=== PATIENT | male | born 1960 | race Caucasian/White ===

== ENCOUNTER 2024-01-27 15:20 | Outpatient (CLI) | payer MEDICAID, SELFPAY ==
--- NOTE | 2024-01-27 15:28 | XR_ITS ---
FINAL REPORT CLINICAL HISTORY: Left knee pain COMPARISON: None FINDINGS: LEFT KNEE Three views demonstrate no acute fracture or dislocation. There are small osteophytes along the undersurface of the patella. There is advanced narrowing of the medial compartment joint space. Subchondral sclerosis is identified. No acute soft tissue abnormality is seen. IMPRESSION: Hypertrophic changes of osteoarthritis medial compartment and patellofemoral compartment. Reviewed, Interpreted and Dictated by Haider Ram MD Transcribed by Cristy Rubio Authenticated and [facility]
== END 2024-01-27 23:59 | disposition home or self-care (01) ==
PROVIDERS: Visit Provider Orthopaedic Surgery
DX: M25.562 Pain in left knee (principal)
CPT/HCPCS: 73562

== ENCOUNTER 2024-02-04 14:04 | Outpatient (CLI) | payer OTHER, SELFPAY ==
[2024-02-04 17:01] LABS: Basophils # 0.1 K/mm3 (0-0.2); Basophils % 1.5 % (0.1-2.0); Eosinophils # 0.1 K/mm3 (0.0-0.4); Eosinophils % 1.4 % (0.1-12.0); Hematocrit 58.7 % (42.0-52.0); Lymphocytes # 1.3 K/mm3 (0.7-4.5); Lymphocytes % 20.1 % (10-50); Mean Corpuscular HGB Conc 31.2 g/dL (31.8-35.4); Mean Corpuscular Hemoglobin 30.6 pg (27.0-31.2); Mean Corpuscular Volume 97.9 fl (80-94); Mean Platelet Volume 8.7 fl (7.4-10.4); Monocytes # 0.5 K/mm3 (0.1-1.0); Monocytes % 7.8 % (1.7-9.3); Neutrophils # 4.4 K/mm3 (1.8-7.8); Platelet Count 212 K/mm3 (142-424); Red Blood Count 5.99 M/mm3 (4.60-6.20); Red Cell Distribution Width 14.1 % (11.5-17.5); White Blood Count 6.4 K/mm3 (4.8-10.8)
[2024-02-04 17:21] LABS: Alanine Aminotransferase 15 U/L (12-78); Albumin/Globulin Ratio 1.4 (1.1-1.8); Alkaline Phosphatase 124 U/L (38-126); Anion Gap 5.9 mEq/L (5-15); Aspartate Amino Transferase 34 U/L (17-59); Bilirubin,Total 1.2 mg/dl (0.2-1.3); Blood Urea Nitrogen 17 mg/dl (9-20); Calcium 9.4 mg/dl (8.4-10.2); Carbon Dioxide 33 mmol/L (22.0-30.0); Chloride 105 mmol/L (98-107); Chol/HDL Ratio 5.3 (1-3.5); Cholesterol 168 mg/dl (140-200); Estimated Glomerular Filt Rate 114 ml/min (>60); GFR (African American) 137 ML/MIN (>60); Globulin 2.9 g/dL (1.3-3.2); Glucose 114 mg/dl (74-100); HDL Cholesterol 32 mg/dl (40-60); Magnesium 1.8 mg/dl (1.6-2.3); Potassium 4.9 mmoL/L (3.5-5.1); Sodium 139 mmol/L (136-145); Total Protein,Serum 6.9 g/dl (6.3-8.2); Triglycerides 80 mg/dl (30-150); VLDL Cholesterol 16 mg/dL (0-40)
[2024-02-04 17:30] LABS: NT Pro Brain Natriuretic Pep. 6290 pg/mL (0-125)
[2024-02-04 17:31] LABS: Hemoglobin A1C 7.5 % (4.0-6.0)
[2024-02-04 17:32] LABS: Direct LDL Cholesterol 119.56 mg/dL (100-129)
[2024-02-04 17:50] LABS: Hemoglobin 18.3 g/dL (14.1-18.0)
[2024-02-04 18:05] LABS: Thyroid Stimulating Hormone 2.82 uIU/mL (0.465-4.68)
== END 2024-02-04 23:59 | disposition home or self-care (01) ==
LOC: LAB.DROPOF 02-05 10:17
PROVIDERS: PCP Nurse Practitioner Family; Visit Provider Nurse Practitioner Family
DX: Z13.1 Encounter for screening for diabetes mellitus (principal); R06.09 Other forms of dyspnea; R60.9 Edema, unspecified; Z13.220 Encounter for screening for lipoid disorders
CPT/HCPCS: 80050; 80053; 80061; 83036; 83735; 83880; 84443; 85025; 87086

== ENCOUNTER 2024-02-07 10:38 | Outpatient (CLI) | payer OTHER, SELFPAY ==
--- NOTE | 2024-02-07 10:41 | XR_ITS ---
FINAL REPORT TECHNIQUE: Chest PA & Lateral CLINICAL HISTORY: CHF, edema COMPARISON: None FINDINGS: 2 views of the chest were performed. The heart is mildly enlarged. The mediastinum is within normal limits. There is right lower lobe consolidation and right lower lobe atelectasis. There is a small right pleural effusion. There is no pneumothorax. The bony thorax appears intact. IMPRESSION: Right lower lobe consolidation and atelectasis with small right pleural effusion. Reviewed, Interpreted and Dictated by Haider Ram MD Transcribed by Cristy Rubio Authenticated and [facility]
== END 2024-02-07 23:59 | disposition home or self-care (01) ==
LOC: RAD 10:39
PROVIDERS: PCP Nurse Practitioner Family; Visit Provider Nurse Practitioner Family
DX: I50.9 Heart failure, unspecified (principal)
CPT/HCPCS: 71046

== ENCOUNTER 2024-02-07 13:32 | Outpatient (CLI) | payer OTHER, SELFPAY ==
--- NOTE | 2024-02-07 13:30 | CA_ITS ---
FINAL REPORT TECHNIQUE: Multiple transverse and longitudinal images were performed of the right femoral-popliteal deep venous system with augmentation and compression maneuvers. CLINICAL HISTORY: leg pain and edema (right) x 3 weeks, denies trauma, recent diabetes diagnosis. FINDINGS: Right lower extremity duplex ultrasound demonstrates normal flow in the deep venous system. There is no abnormal echogenicity to suggest thrombus. There is normal compression and augmentation. IMPRESSION: No evidence of right lower extremity DVT. Reviewed, Interpreted and Dictated by Haider Ram MD Transcribed by Viky Britt Authenticated and [facility]
== END 2024-02-07 23:59 | disposition home or self-care (01) ==
LOC: RT 13:35
PROVIDERS: PCP Nurse Practitioner Family; Visit Provider Physician Assistant
DX: M79.604 Pain in right leg (principal); M79.605 Pain in left leg; R60.0 Localized edema; R06.09 Other forms of dyspnea; R94.31 Abnormal electrocardiogram [ECG] [EKG]
CPT/HCPCS: 93971

== ENCOUNTER 2024-02-10 13:17 | Outpatient (CLI) | payer OTHER, SELFPAY ==
--- NOTE | 2024-02-10 13:22 | CA_ITS ---
APPROVED REPORT EXAM: Comprehensive 2D, Doppler, and color-flow Echocardiogram Gas Treater: Cece Bello RVT Ht: 6 ft 1 in Wt: 257lbs BSA: 2.39 BP: 109/80 mmHg Indications: DYSPENA,CHF,ABN EKG,DM,EDEMA,CP,SMOKER 2D Dimensions LA Volume 88.70 mL LA Volume Index 36.96 mL/m2 (M/F) 16-34 M-Mode Dimensions RVDd 3.44 cm (0.9-2.6) LA Diam 4.71 cm (1.9-4.0) LVDd 5.65 cm (3.5-5.7) LVDs 4.33 cm (3.5-5.7) IVSd 1.03 cm (0.6-1.1) PWd 0.84 cm (0.6-1.1) EF (Teich) 46.20% FS 23.40% EDV (Teich) 156.80 mL TAPSE 1.75 (<1.7) ESV (Teich) 84.40 mL Aortic Valve DHRUV Index 1.43 cm2/m2 AoV Peak Antonio. 84.0 (50-130 cm/s) AO Peak GR. 2.80 mmHg AO Mean GR. 1.90 (<5 mmHg) AO VTI 15.2 (18-25 cm) DHRUV (VTI) 3.51 (2.5-4.5 cm2) Pulmonary Valve PV Peak Velocity 74.0 (50-150 cm/s) Tricuspid Valve TR P. Velocity 310.00 cm/s RAP Estimate 10.00 mmHg RVSP 48.50 mmHg Left Ventricle The left ventricle is mildly dilated. Left ventricular systolic function is severely decreased. There is increased overall thickness. There is severe global hypokinesis present. The septum is asynchronous. Diastolic function is indeterminate. LVEF is 25%. Right Ventricle Right ventricle is severely dilated. Right ventricle is severely hypokinetic. Atria The left atrium is moderately dilated. Right atrium is severely dilated. There is no Doppler evidence of interatrial shunt. Aortic Valve The aortic valve is mildly thickened. There is no aortic valvular stenosis. Trace aortic regurgitation. Mitral Valve The mitral valve is is mildly thickened. No evidence of mitral valve stenosis. Trace mitral regurgitation. Tricuspid Valve The tricuspid valve leaflets are thin and pliable. Moderate tricuspid regurgitation. RVSP is 45-50 mmHg. Pulmonic Valve The pulmonary valve is normal in structure. Trace pulmonic regurgitation. Great Vessels The aortic root is normal in size. The ascending aorta is not well-visualized. The IVC is dilated, collapses < 50% with respirophasic variation. RA pressure is estimated at 15 mmHg. Pericardium There is no pericardial effusion. Other Information Study Quality: Fair Conclusion Mild LV dilation with severe reduction in LV systolic function (LVEF 25%). Diastolic function is indeterminate. Severe RV dilation with severe reduction in RV function. Biatrial dilation. Moderate TR. Elevated RVSP 45-50 mmHg. In the setting of biventricular systolic dysfunction, further evaluation for ischemia is suggested. Also, cardiac MRI (cardiomyopathy protocol) is recommended. Clinical correlation is required. Electronically signed by : Bessie Padron MD 02/15/2024 12:19:10
[2024-02-10 14:14] LABS: Blood Urea Nitrogen 17 mg/dl (9-20); Calcium 9.3 mg/dl (8.4-10.2); Chloride 95 mmol/L (98-107); Estimated Glomerular Filt Rate 114 ml/min (>60); GFR (African American) 137 ML/MIN (>60); Glucose 147 mg/dl (74-100); Magnesium 1.6 mg/dl (1.6-2.3); Potassium 3.5 mmoL/L (3.5-5.1); Sodium 138 mmol/L (136-145)
[2024-02-10 14:21] LABS: Anion Gap 6.5 mEq/L (5-15); Carbon Dioxide 40 mmol/L (22.0-30.0)
[2024-02-10 14:23] LABS: NT Pro Brain Natriuretic Pep. 5340 pg/mL (0-125)
== END 2024-02-10 23:59 | disposition home or self-care (01) ==
LOC: RT 13:19
PROVIDERS: PCP Nurse Practitioner Family; Visit Provider Physician Assistant
DX: R06.09 Other forms of dyspnea (principal); R94.31 Abnormal electrocardiogram [ECG] [EKG]; M79.604 Pain in right leg; M79.605 Pain in left leg; R60.0 Localized edema; I50.9 Heart failure, unspecified; J06.9 Acute upper respiratory infection, unspecified; E11.9 Type 2 diabetes mellitus without complications; R79.89 Other specified abnormal findings of blood chemistry; B96.89 Other specified bacterial agents as the cause of diseases classified elsewhere
CPT/HCPCS: 36415; 80048; 83735; 83880; 87070; 87077; 87205; 93306

== ENCOUNTER 2024-03-03 10:03 | Outpatient (CLI) | payer OTHER, SELFPAY ==
[2024-03-03] MEDS: SODIUM CHLORIDE 0.9% 10ML SYR (RAD ONLY) 10 ML IV (11:35)
[2024-03-03] MEDS: 0.9 % SODIUM CHLORIDE 50 ML VIAL IV (11:35)
[2024-03-03] MEDS: GADOTERIDOL INJ 10ML SYRINGE 3 ML IV (11:35)
[2024-03-03] MEDS: GADOTERIDOL INJ 20ML SYRINGE 20 ML IV (11:36)
== END 2024-03-03 23:59 | disposition home or self-care (01) ==
PROVIDERS: PCP Nurse Practitioner Family; Visit Provider Physician Assistant
DX: I50.20 Unspecified systolic (congestive) heart failure (principal); R06.09 Other forms of dyspnea; R53.83 Other fatigue
CPT/HCPCS: 75561; A9576

== ENCOUNTER 2024-03-08 08:01 | Day surgery (SDC) | payer OTHER, SELFPAY ==
[2024-03-08] VITALS (13 sets, daily range): BP systolic 101–129; BP diastolic 62–93; PULSE 70–82; RESP 16–20; TEMP 36.9; O2SAT 95–99; BMI 30.7
--- NOTE | 2024-03-08 07:36 | IR_ITS ---
APPROVED REPORT Patient Location: Outpatient PROCEDURES Left heart catheterization Left ventriculogram Selective coronary angiogram Intravascular ultrasound the left main artery Intravascular ultrasound to the right coronary artery INDICATION Systolic congestive heart failure ejection fraction 25%, Coronary artery disease with angiographic ambiguity Informed consent was obtained prior to the procedure. COMPLICATIONS NONE Estimated Blood Loss: LESS THAN 10 ML TECHNIQUE One percent lidocaine used to anesthetize the right anterior aspect of the wrist. The right radial artery was accessed via the Seldinger technique. A 6 Dominican sheath was placed in the right radial artery. 2.5 mg of Verapamil, 800 mcg of nitroglycerin, 1mg Lidocaine and 5000 U Heparin were given through the arterial sheath. The 6 Dominican JL 3 guide catheter was used to perform left heart catheterization, left ventriculogram and selective coronary angiogram. At the end the diagnostic angiogram therapeutic Was administered giving a therapeutic ACT and the guide catheter was placed in the right coronary followed by Choice PT extra-support wire placed distally. Intravascular sound probe was used to interrogate the mid right coronary artery lesion which demonstrated an MLA greater than 7 mm???. This did not require intervention and was not considered hemodynamically significant therefore the apparatus was removed and placed in the left main artery where intravascular sound probe was advanced. The MLA was greater than 10 mm??? in the ostial left main artery. Given neither lesion required intervention the apparatus was removed the sheath was removed hemostasis was achieved using TR banding patient was transferred to the postop putting in stable condition ANGIOGRAPHIC RESULTS The left main artery Had an ostial angiographic ambiguous stenosis with angiography suggesting between 30 and 50%. IVUS confirmed the atherosclerotic plaque produced a 20% lesion The left anterior descending artery Large widely patent with mild diffuse 10% luminal regularities The circumflex artery Nondominant yet still large and has mid vessel tandem 20 to 30% stenoses The right coronary artery Dominant with proximal 10% stenosis and an angiographic ambiguous stenosis meeting 40 to 50% criteria by angiography with IVUS demonstrating the lesion was 20 to 30% The VERMA ventriculogram reveals Severe left ventricular dilatation with severe global hypokinesis estimate ejection fraction 20% The left ventricular end-diastolic pressure Severely elevated at 30 to 35 mmHg IMPRESSION Nonischemic coronary artery disease as described above Nonischemic cardiomyopathy Severely reduced ejection fraction with severely elevated LVEDP PLAN 1. Patient requires additional diuresis for elevated LVEDP 2. GDMT for systolic heart failure 3. Consider cardiac MRI 4. Start patient on GDMT and reevaluate ejection fraction in 3 months to determine if interval improvement. If ejection fraction remains less than 35% recommend AICD etc. Electronically signed by : Devante Pierce MD 03/08/2024 12:14:37
[2024-03-08 08:50] LABS: Basophils # 0.1 K/mm3 (0-0.2); Basophils % 1.6 % (0.1-2.0); Eosinophils # 0.1 K/mm3 (0.0-0.4); Eosinophils % 1.7 % (0.1-12.0); Hematocrit 56.6 % (42.0-52.0); Hemoglobin 17.9 g/dL (14.1-18.0); Lymphocytes # 1.1 K/mm3 (0.7-4.5); Lymphocytes % 20.6 % (10-50); Mean Corpuscular HGB Conc 31.6 g/dL (31.8-35.4); Mean Platelet Volume 7.9 fl (7.4-10.4); Monocytes # 0.4 K/mm3 (0.1-1.0); Monocytes % 6.9 % (1.7-9.3); Neutrophils # 3.8 K/mm3 (1.8-7.8); Neutrophils % 69.3 % (37.0-80.0); Platelet Count 190 K/mm3 (142-424); Red Blood Count 5.96 M/mm3 (4.60-6.20); Red Cell Distribution Width 14.2 % (11.5-17.5); White Blood Count 5.5 K/mm3 (4.8-10.8)
[2024-03-08 08:57] LABS: Anion Gap 8.2 mEq/L (5-15); Blood Urea Nitrogen 14 mg/dl (9-20); Calcium 9.1 mg/dl (8.4-10.2); Carbon Dioxide 39 mmol/L (22.0-30.0); Chloride 100 mmol/L (98-107); Creatinine Clearance Estimated 112 mL/min (50-200); Estimated Glomerular Filt Rate 114 ml/min (>60); GFR (African American) 137 ML/MIN (>60); Glucose 133 mg/dl (74-100); Potassium 4.2 mmoL/L (3.5-5.1); Sodium 143 mmol/L (136-145)
[2024-03-08] MEDS: MIDAZOLAM HCL 1MG/ML 5ML VIAL 1 MG IV (10:24)
[2024-03-08] MEDS: VERAPAMIL 2.5MG/ML 2ML VIAL 2.5 MG IV (10:24)
[2024-03-08] MEDS: HEPARIN 1,000 UNITS/ML 10ML VIAL (CATH LAB) 10000 UNIT IV (10:24)
[2024-03-08] MEDS: HEPARIN 1,000 UNITS/500ML NS (CATH LAB) 3000 UNIT IV (10:24)
[2024-03-08] MEDS: FENTANYL 100MCG/2ML VIAL 50 MCG IV (10:24)
[2024-03-08] MEDS: LIDOCAINE 1% 10ML MDV 20 ML IJ (10:25)
[2024-03-08] MEDS: 0.9 % SODIUM CHLORIDE 500 ML 25 ML IV (10:25)
[2024-03-08] MEDS: NITROGLYCERIN 800MCG/8ML SYR (CATH LAB) 800 MCG IA (10:26)
[2024-03-08] MEDS: IOPAMIDOL-370 (76%);100ML BOTTLE 70 ML IV (13:04)
== END 2024-03-08 14:07 | disposition home or self-care (01) ==
PROVIDERS: PCP Nurse Practitioner Family; Visit Provider Internal Medicine
DX: I50.20 Unspecified systolic (congestive) heart failure (principal); E11.9 Type 2 diabetes mellitus without complications; F17.210 Nicotine dependence, cigarettes, uncomplicated; R94.31 Abnormal electrocardiogram [ECG] [EKG]; Z79.899 Other long term (current) drug therapy
CPT/HCPCS: 80048; 85025; 92978; 92979; 93458; 99152; C1725; C1769; J1644; J2250; J3010; Q9967

== ENCOUNTER 2024-04-11 08:58 | Outpatient (CLI) | payer OTHER, SELFPAY ==
--- NOTE | 2024-04-11 09:02 | CT_ITS ---
FINAL REPORT CLINICAL HISTORY: lung cancer screening. 1 PPD FOR 30 YEARS. COMPARISON: None FINDINGS: CT CHEST LOW DOSE SCREENING HISTORY: Screening exam for lung cancer. 63-year-old male, Current smoker, 30 pack year smoking history DOSE: CTDIvol: 2.9 mGy, DLP: 115.94 mGy*cm COMPARISON: None . TECHNIQUE: Axial CT without IV contrast administration using low dose protocol. This study was performed with techniques to keep radiation doses as low as reasonably achievable, (ALARA). Individualized dose reduction techniques using automated exposure control or adjustment of mA and/or kV according to the patient's size were employed. FINDINGS: No acute lung disease is present . There are at least 3 nodules, 3 mm or less in size, in the right upper lobe. 1 of these nodules measures 3 mm, best seen on image #61 along the major fissure. A second 2 mm lingular nodule is noted as well, best seen on image #49. No pleural or pericardial effusion is seen . No adenopathy or mass lesion is present . Limited visualization of the abdomen suggest that gallstones may be present in the gallbladder. IMPRESSION: Several small nodules, less than 3 mm in size as described above. Question gallstones in the gallbladder. LUNG RADS CATEGORY 2 RECOMMENDATION: 12 month LDCT follow up Reviewed, Interpreted and Dictated by Jayesh Coon MD Transcribed by Viky Britt Authenticated and [facility]
[2024-04-11 10:25] VITALS: PULSE 86; PULSE 92
[2024-04-11] MEDS: ALBUTEROL 0.083% 2.5 MG/3 ML NEB IH (10:25)
== END 2024-04-11 23:59 | disposition home or self-care (01) ==
LOC: RAD 08:59
PROVIDERS: PCP Nurse Practitioner Family; Visit Provider Internal Medicine Pulmonary Disease
DX: R06.09 Other forms of dyspnea (principal); F17.210 Nicotine dependence, cigarettes, uncomplicated
CPT/HCPCS: 71271; 94060; 94618; 94640; 94727; 94729; J7613

== ENCOUNTER 2024-05-22 13:46 | Outpatient (CLI) | payer OTHER, SELFPAY ==
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
== END 2024-05-22 23:59 | disposition home or self-care (01) ==
LOC: RAD 13:48
PROVIDERS: PCP Nurse Practitioner Family; Visit Provider Nurse Practitioner Family
DX: M54.2 Cervicalgia (principal); R93.89 Abnormal findings on diagnostic imaging of other specified body structures; M25.511 Pain in right shoulder; V89.2XXA Person injured in unspecified motor-vehicle accident, traffic, initial encounter
CPT/HCPCS: 71046; 72050; 73030

== ENCOUNTER 2024-06-19 07:50 | Outpatient (CLI) | payer OTHER, SELFPAY ==
--- NOTE | 2024-06-19 07:56 | CA_ITS ---
APPROVED REPORT EXAM: Limited 2D Echocardiogram Sales Administrator: Cece Bello RVT Ht: 6 ft 1 in Wt: 199lbs BSA: 2.15 BP: 102/70 mmHg Indications: EF CHECK,CM EF OF 25% ON 02/10/24,PT DECLINED LIFEVEST,SMOKER,DM,FATIGUE 2D Dimensions IVSd 0.82 cm M: 0.6-1.2 LVEF (Visual) 32.20 % PWd 0.90 cm M: 0.6 - 1.2 LVDd 5.51 cm M: 4.2 - 5.9 LVDs 4.66 cm M: 2.5 - 4.0 M-Mode Dimensions LA Diam 3.71 cm (1.9-4.0) Other Information Study Quality: Fair Conclusion This is a limited TTE to LV systolic function. Limited windows are obtained. The left ventricle is normal in size. There is increased LV wall thickness. The septum is asynchronous. There is severe global hypokinesis present. LVEF is 25%. Compared to prior study from 02/10/2024, the EF is overall unchanged. Electronically signed by : Bessie Padron MD 06/19/2024 12:32:09
== END 2024-06-19 23:59 | disposition home or self-care (01) ==
LOC: RT 07:52
PROVIDERS: PCP Nurse Practitioner Family; Visit Provider Physician Assistant
DX: I50.20 Unspecified systolic (congestive) heart failure (principal)
CPT/HCPCS: 93308

== ENCOUNTER 2024-06-26 13:47 | Outpatient (CLI) | payer OTHER, SELFPAY ==
[2024-06-26 15:01] LABS: Basophils # 0.1 K/mm3 (0-0.2); Basophils % 1.1 % (0.1-2.0); Eosinophils # 0.2 K/mm3 (0.0-0.4); Eosinophils % 1.7 % (0.1-12.0); Hematocrit 49.6 % (42.0-52.0); Hemoglobin 16.6 g/dL (14.1-18.0); Lymphocytes # 2.4 K/mm3 (0.7-4.5); Lymphocytes % 25.2 % (10-50); Mean Corpuscular HGB Conc 33.5 g/dL (31.8-35.4); Mean Corpuscular Hemoglobin 30.9 pg (27.0-31.2); Mean Corpuscular Volume 92.2 fl (80-94); Mean Platelet Volume 10.3 fl (7.4-10.4); Monocytes # 0.7 K/mm3 (0.1-1.0); Monocytes % 7.3 % (1.7-9.3); Neutrophils % 64.1 % (37.0-80.0); Platelet Count 201 K/mm3 (142-424); Red Blood Count 5.38 M/mm3 (4.60-6.20); Red Cell Distribution Width 15.6 % (11.5-17.5); White Blood Count 9.4 K/mm3 (4.8-10.8)
[2024-06-26 15:20] LABS: Alanine Aminotransferase 27 U/L (12-78); Albumin Level 4.5 g/dl (3.5-5.0); Alkaline Phosphatase 95 U/L (38-126); Anion Gap 9.3 mEq/L (5-15); Aspartate Amino Transferase 29 U/L (17-59); Bilirubin,Direct 0.2 mg/dl (0.0-0.4); Bilirubin,Indirect 0.3 mg/dL (0.0-0.9); Bilirubin,Total 0.5 mg/dl (0.2-1.3); Bilirubin,Unconjugated 0.2 mg/dL (0.0-1.1); Blood Urea Nitrogen 15 mg/dl (9-20); Calcium 9.4 mg/dl (8.4-10.2); Carbon Dioxide 34 mmol/L (22.0-30.0); Chloride 100 mmol/L (98-107); Chol/HDL Ratio 6.4 (1-3.5); Cholesterol 167 mg/dl (140-200); Estimated Glomerular Filt Rate 136 ml/min (>60); GFR (African American) 164 ML/MIN (>60); Glucose 140 mg/dl (74-100); HDL Cholesterol 26 mg/dl (40-60); Potassium 4.3 mmoL/L (3.5-5.1); Sodium 139 mmol/L (136-145); Total Protein,Serum 6.9 g/dl (6.3-8.2); Triglycerides 346 mg/dl (30-150); VLDL Cholesterol 69 mg/dL (0-40)
[2024-06-26 15:30] LABS: NT Pro Brain Natriuretic Pep. 462 pg/mL (0-125)
[2024-06-26 15:31] LABS: Direct LDL Cholesterol 88.06 mg/dL (100-129)
== END 2024-06-26 23:59 | disposition home or self-care (01) ==
LOC: LAB 13:48
PROVIDERS: PCP Nurse Practitioner Family; Visit Provider Physician Assistant
DX: R60.0 Localized edema (principal); R06.09 Other forms of dyspnea; R79.89 Other specified abnormal findings of blood chemistry; E11.9 Type 2 diabetes mellitus without complications; I50.20 Unspecified systolic (congestive) heart failure; R53.83 Other fatigue
CPT/HCPCS: 36415; 80048; 80061; 80076; 83880; 85025